=== PATIENT | female | born 1950 | race Caucasian/White ===

== ENCOUNTER 2017-06-13 10:22 | Emergency (ER) | payer MEDICARE ==
[2017-06-13 10:51] VITALS: BP 129/70
--- NOTE | 2017-06-13 11:17 | XRay Report ---
LEFT HAND RADIOGRAPHS INDICATION: Pain. COMPARISON: None similar at this institution. FINDINGS: AP, lateral and oblique left hand radiographs demonstrate intact articulation. No focal suspicious erosions, though interphalangeal osteoarthritic spurring noted. No suspicious erosions. Mild degenerative changes suspected at the wrist and also involving the distal radius. Mild wrist soft tissue swelling also suspected, more so dorsally and medially. CONCLUSION: Osteoarthritic changes involving the left hand and wrist with mild soft tissue swelling also suspected, as described. Please correlate. Thank you for the opportunity to participate in this patient's care.
--- NOTE | 2017-06-13 15:13 | Emergency Department Report ---
Upper Extremity - HPI Chief Complaint: Extremity Injury, Upper Stated Complaint: LEFT HAND PAIN/SWELLING Time Seen by Provider: 06/13/17 14:24 Upper Extremity: Left Shoulder (left shoulder pain status post fall), Left Elbow (left elbow pain), Left Wrist (left wrist pain and swelling status post fall) Occurred When: 1 Day Mechanism: Fall Symptoms: Yes Pain with Movement, Yes Deformity, Yes Limited Range of Movement, Yes Weakness, Yes Swelling, Yes Bruising/Ecchymosis, No Numbness Other History: 67-year-old female past medical history scleroderma presents with complaint of pain to her left distal wrist and elbow and left shoulder stiffness status post mechanical fall in her backyard yesterday. Patient states she fell on an outstretched hand and is now experiencing pain with movement of her left wrist. Denies sustaining any lacerations denies any loss of consciousness was able to stand up immediately after the fall. States her left elbow and left shoulder are stiff. ED Review of Systems ROS: Stated complaint: LEFT HAND PAIN/SWELLING Other details as noted in HPI Constitutional: denies: chills, fever Eyes: denies: eye pain, eye discharge, vision change ENT: denies: ear pain, throat pain Respiratory: denies: cough, shortness of breath, wheezing Cardiovascular: denies: chest pain, palpitations Endocrine: no symptoms reported Gastrointestinal: denies: abdominal pain, nausea, diarrhea Genitourinary: denies: urgency, dysuria, discharge Musculoskeletal: as per HPI, arthralgia. denies: back pain, joint swelling Skin: denies: rash, lesions Neurological: denies: headache, weakness, paresthesias Psychiatric: denies: anxiety, depression Hematological/Lymphatic: denies: easy bleeding, easy bruising ED Past Medical Hx - Past Medical History Additional medical history: escleroderma - Surgical History Past Surgical History?: No - Social History Smoking Status: Never Smoker Substance Use Type: None - Medications Home Medications: Home Medications Medication Instructions Recorded Confirmed Last Taken Type Acetaminophen/Codeine [Tylenol 1 tab PO Q6H PRN #12 tab 06/13/17 Unknown Rx /Codeine # 3 tab] Ibuprofen [Motrin] 600 mg PO Q8H PRN #20 tablet 06/13/17 Unknown Rx Upper Extremity Exam - Exam General: Vital signs noted. No distress. Alert and acting appropriately. Head and Torso: No HEENT Abnormality, No Neck Tenderness, No Chest/Lungs Abnormality, No Abdominal Tenderness, No Back Tenderness Shoulder Exam: Yes Normal Range of Motion in Shoulder, No Shoulder Tenderness, No Clavicle Tenderness, No Shoulder Deformity, No AC Joint Tenderness Arm Exam: No Arm/Humerus Tenderness, No Arm Deformity Elbow: Yes Elbow Tenderness (left elbow pain), No Normal Range of Motion in Elbow, No Elbow Deformity Forearm: No Forearm Tenderness, No Forearm Deformity, No Pain with Pronation, No Pain with Supination Wrist: Yes Wrist Tenderness (left distal wrist pain), Yes Normal ROM in Wrist, No Wrist Deformity, No Snuffbox Tenderness, No Pain with Axial Thumb Compression Hand: Yes Normal ROM in Digit(s), No Hand Tenderness, No Hand Deformity, No Digit Tenderness, No Digit(s) Deformity, No Tendon Dysfunction CMS Exam: Yes Normal Distal Pulses (distal radial and ulnar pulses ), Yes Normal Capillary Refill (cap refill less than 1 second), Yes Normal Distal Sensation (intact in all fingers), No Broken Skin Hand L/R Front: 1 - pain on palpation here ED Course Vital Signs 06/13/17 10:49 Temperature 98.6 F Pulse Rate 48 L Respiratory 16 Rate Blood Pressure 129/70 O2 Sat by Pulse 100 Oximetry ED Medical Decision Making - Medical Decision Making A/P: Left wrist sprain, suspected fracture 1-and placed in volar splint. Left upper extremity neurovascularly intact radial and ulnar pulses intact distal capillary refill less than one second in all fingers range of motion PIP and DIPs MCP is intact on exam. 2-Motrin and Tylenol 3 when necessary 3-follow-up with primary care and orthopedics Critical care attestation.: If time is entered above; I have spent that time in minutes in the direct care of this critically ill patient, excluding procedure time. ED Disposition Clinical Impression: Left wrist sprain Qualifiers: Encounter type: initial encounter Qualified Code(s): S63.502A - Unspecified sprain of left wrist, initial encounter Disposition: TO HOME OR SELFCARE Is pt being admited?: No Does the pt Need Aspirin: No Condition: Stable Instructions: SUSPECTED FRACTURE (ED), Wrist Injury (ED), Wrist Fracture in Adults (ED), Wrist Sprain (ED) Prescriptions: Acetaminophen/Codeine [Tylenol /Codeine # 3 tab] 1 tab PO Q6H PRN #12 tab PRN Reason: Pain Ibuprofen [Motrin] 600 mg PO Q8H PRN #20 tablet PRN Reason: Pain Referrals: STEPHANIE VAZQUEZ MD [Staff Physician] - 3-5 Days [facility] [Outside] - 3-5 Days Forms: Work/School Release Form(ED) Time of Disposition: 17:10 Print Language: ROMANIAN
[2017-06-13] MEDS ORDERED: MOTRIN PO ONE (15:14)
--- NOTE | 2017-06-13 16:44 | XRay Report ---
LEFT ELBOW: History: Pain after trauma. The bony architecture is intact without evidence of fracture or dislocation. No significant soft tissue abnormality is seen. IMPRESSION: Normal left elbow.
--- NOTE | 2017-06-13 16:45 | XRay Report ---
Left shoulder 3 views. Findings: There is no evidence of fracture or dislocation. 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 Diffuse osteopenia is noted. The scapula appears intact. Impression: No acute findings.
== END 2017-06-13 17:37 | disposition home or self-care (01) ==
LOC: ED 10:22
DX: S63.502A Unspecified sprain of left wrist, initial encounter (principal); W18.30XA Fall on same level, unspecified, initial encounter; Y93.9 Activity, unspecified; Y92.9 Unspecified place or not applicable; Y99.9 Unspecified external cause status